=== PATIENT | female | born 1970 | race Caucasian/White ===

== ENCOUNTER 2020-05-20 21:27 | Inpatient (IN) | payer OTHER ==
[~2020-05-20] VITALS: Ht 170.2 cm; Wt 68.2 kg
[2020-05-20 21:27] VITALS: BP 119/85; BP 126/94
--- NOTE | 2020-05-20 22:00 | NUR ---
MEDICATION COUNT: LITHIUM 300MG 60 PILLS SEROQUEL 300MG 57 PILLS VALIUM 10MG 6 PILLS
[2020-05-20 22:15] LABS: APTT 26.3 SECONDS (22.8-39.4); INR 1.01 (0.85-1.17); PROTIME 13.2 SECONDS (11.6-15.0)
[2020-05-20 22:27] VITALS: BP 125/83
[2020-05-20 22:49] LABS: BILIRUBIN NEGATIVE (NEGATIVE); GLUCOSE NEGATIVE (NEGATIVE); KETONE NEGATIVE (NEGATIVE); NITRITE NEGATIVE (NEGATIVE); UROBILINOGEN NORMAL (NORMAL)
[2020-05-20 22:50] LABS: UDS - AMPHET NEGATIVE QUAL (NEGATIVE); UDS - BARB NEGATIVE QUAL (NEGATIVE); UDS - BENZO POSITIVE QUAL (NEGATIVE); UDS - COCAINE NEGATIVE QUAL (NEGATIVE); UDS - OPIATE NEGATIVE QUAL (NEGATIVE); UDS - PCP NEGATIVE QUAL (NEGATIVE); UDS - THC NEGATIVE QUAL (NEGATIVE)
[2020-05-20 22:58] LABS: BASOPHILS 0.4 % (0-2); EOSINOPHILS 0.6 % (0-7); HEMATOCRIT 39.7 % (36.0-48.0); HEMOGLOBIN 13.3 g/dL (12-16); IMMATURE GRANULOCYTES 0.8 % (0-5); LYMPHOCYTES 19.6 % (15-50); MCH 33.5 pg (26.0-34.0); MCHC 33.5 g/dL (31.0-37.0); MEAN PLATELET VOLUME 9.8 fL (7.4-10.4); MONOCYTES 9.7 % (2-11); NEUTROPHILS 68.9 % (40-80); PLATELET COUNT 167 10x3/uL (130-400); RBC 3.97 10x6/uL (4.00-5.40); RDW 14.1 % (11.5-14.5); WBC 10.6 10x3/uL (4.8-10.8)
[2020-05-20 23:00] LABS: CALC OSMOLALITY 286 mosm/kg (275-300); CALCIUM 9.1 mg/dL (8.5-10.1); CARBON DIOXIDE 18.5 mmol/L (21.0-32.0); CHLORIDE - SERUM 108 mmol/L (98-107); GLUCOSE 108 mg/dL (74-106); SODIUM 143 mmol/L (136-145); UREA NITROGEN 14 mg/dL (7-18); eGFR NON AFRICAN AMERICAN 62 mL/min (90-120)
[2020-05-20 23:15] LABS: CKMB 1.6 U/L (0.0-3.6); PROTEIN - SERUM 6.8 g/dL (6.4-8.2)
[2020-05-20 23:27] VITALS: BP 142/89
[2020-05-20 23:40] LABS: ALBUMIN 3.5 g/dL (3.4-5.0); ALKALINE PHOSPHATASE 102 U/L (30-120); ALT (SGPT) 39 U/L (10-68); CREATINE KINASE 399 UL (21-215); MAGNESIUM - SERUM 1.8 mg/dL (1.8-2.4); TROPONIN-I < 0.017 ng/mL (0.000-0.060)
[2020-05-21] VITALS (13 sets, daily range): BP systolic 95–135; BP diastolic 64–94; Ht 170.2 cm; Wt 68.2 kg
--- NOTE | 2020-05-21 04:40 | NUR ---
ATTEMPTED TO DO SUICIDE SCREENING. PATIENT UNABLE TO ANSWER QUESTIONS AT THIS TIME. SHE IS CONFUSED AND UNABLE TO COMPREHEND QUESTIONS AND COMMUNICATE THE ANSWER APPROPRIATELY. WILL REASSESS WHEN SHE IS ABLE TO COMMUNICATE.
--- NOTE | 2020-05-21 05:24 | NUR ---
patient attempting to get out of bed. disoriented. unable to answer questions clearly. garbled speech
--- NOTE | 2020-05-21 05:56 | NUR ---
PT ARRIVED FROM ER VIA STRETCHER AT 0430. PT IS CONFUSED WITH GARBLED / SLURRED SPEECH. UNABLE TO ANSWER MOST QUESTIONS INCLUDING BUT NOT LIMITED TO SUICIDE SCREENING, EMERGENCY CONTACTS, MEDICAL HX. IV IS IN LEFT WRIST (22 GUAGE) PROTECTED WITH KERLIX. VS 119/91, 95, 20, 100% TEMP 97.0
--- NOTE | 2020-05-21 07:00 | NUR ---
REPORT RECEIVED. ASSESSMENT COMPLETE PER FLOW SHEET. VSS. REFER FOR FINDINGS. PT RESTING COMFORTABLY IWLL CONTINUE TO MONITOR
[2020-05-21 07:41] LABS: ALBUMIN 3.2 g/dL (3.4-5.0); ALKALINE PHOSPHATASE 95 U/L (30-120); ALT (SGPT) 34 U/L (10-68); BILIRUBIN - TOTAL 0.92 mg/dL (0.2-1.3); CALC OSMOLALITY 283 mosm/kg (275-300); CALCIUM 8.6 mg/dL (8.5-10.1); CARBON DIOXIDE 25.2 mmol/L (21.0-32.0); CHLORIDE - SERUM 108 mmol/L (98-107); CKMB 1.9 U/L (0.0-3.6); CREATINE KINASE 516 UL (21-215); CREATININE - SERUM 0.9 mg/dL (0.6-1.3); GLUCOSE 107 mg/dL (74-106); MAGNESIUM - SERUM 1.7 mg/dL (1.8-2.4); PHOSPHOROUS 3.2 mg/dL (2.5-4.9); POTASSIUM - SERUM 3.1 mmol/L (3.5-5.1); PROTEIN - SERUM 6.8 g/dL (6.4-8.2); SODIUM 143 mmol/L (136-145); TROPONIN-I < 0.017 ng/mL (0.000-0.060); UREA NITROGEN 10 mg/dL (7-18); eGFR NON AFRICAN AMERICAN 70 mL/min (90-120)
[2020-05-21 07:50] LABS: BASOPHILS 0.3 % (0-2); EOSINOPHILS 1.2 % (0-7); HEMATOCRIT 38.4 % (36.0-48.0); HEMOGLOBIN 12.6 g/dL (12-16); IMMATURE GRANULOCYTES 0.1 % (0-5); LYMPHOCYTES 21.5 % (15-50); MCH 33.4 pg (26.0-34.0); MCHC 32.8 g/dL (31.0-37.0); MCV 101.9 fL (80.0-100.0); MONOCYTES 8.1 % (2-11); NEUTROPHILS 68.8 % (40-80); PLATELET COUNT 166 10x3/uL (130-400); RBC 3.77 10x6/uL (4.00-5.40); RDW 14.1 % (11.5-14.5); WBC 9.1 10x3/uL (4.8-10.8)
--- NOTE | 2020-05-21 09:15 | NUR ---
COMPLETE BB LINEN CHANGE ADM. ASSISTED TO BEDSIDE COMMODE. 300 CC FRANCIA URINE NOTED
--- NOTE | 2020-05-21 11:20 | NUR ---
REASSESSMENT COMPLETE PER FLOW SHEET. VSS. PT RESTING COMFORTABLY WILL CONTINUE TO MONITOR
--- NOTE | 2020-05-21 15:15 | NUR ---
REASSESSMENT COMPLETE PER FLOW SHEET.VSS. NO NEW HCANGES WILL CONTINUE TO MONITOR
--- NOTE | 2020-05-21 19:15 | NUR ---
PT ARRIVED TO FLOOR VIA WC. ASSISTED PT TO BED. PT UNSTEADY WHILE AMBULATING. SHE IS PLEASANT AND FOLLOWING COMMANDS. ORIENTED TO SELF ONLY. PROVIDED ICE WATER. DENIES OTHER NEEDS. SITTER PRESENT. BED ALARM ON. WILL CTM
--- NOTE | 2020-05-21 20:00 | NUR ---
PT HAS ATTEMPTED TO GET OUT OF BED MULTIPLE TIMES. ARGUING WITH SITTER. SHE IS RAMBLING AND HALLUCINATING. SHE BELIEVES HER DOGS ARE IN THE ROOM WITH HER. MULTIPLE ATTEMPTS TO REORIENT UNSUCCESSFUL. GAVE HS MEDS ORDERED. WILL CTM
--- NOTE | 2020-05-21 20:30 | NUR ---
TWO PERSON ASSIST TO BATHROOM. PT VERY UNSTEADY AND STUMBLING AND GRABBING AT THINGS WHILE WALKING. ASSISTED PT BACK TO BED AFTER VOIDING. WILL CTM
--- NOTE | 2020-05-21 21:15 | NUR ---
PT UPSET AND AGITATED. NOT FOLLOWING COMMANDS TO STAY IN THE BED. CRYING STATING HER DOGS WERE IN THE FLOOR. UNABLE TO REASON WITH PT. SHE DOES NOT KNOW WHERE SHE IS, THE TIME, OR SITUATION. GAVE ATIVAN. TRANSFER CENTER CALLED STATING ANAND NEED COVID SWAB DONE FOR PLACEMENT. COVID SWAB DONE AT THIS TIME. WILL CTM
--- NOTE | 2020-05-21 22:00 | NUR ---
CALLED, PASSWORD STATED AND UPDATE GIVEN. ASKED IF PSYCH DR WOULD GIVE HIM A CALL IN AM WHEN HE ROUNDS. WOULD LIKE TO KNOW WHAT THE NEXT STEP IS. HE BELIEVES SHE PURPOSELY ATTEMPTED OVERDOSE AND THAT IT WAS NOT ACCIDENTALLY. WILL PASS ALONG TO DAY SHIFT.
--- NOTE | 2020-05-21 23:00 | NUR ---
PT AGITATED, GETTING OUT OF BED EVERY FEW MINUTES, YELLING AT SITTER AT THE DOOR WAY, HALLUCINATING AND SEEING THINGS IN THE ROOM THAT ARE NOT THERE. HARD TO UNDERSTAND AND HAVE A CONVERSATION WITH PT. GAVE IM ATIVAN. CALLED ROLAND TO LET HIM KNOW SHE HAS HAD MAX AMOUNT OF GEODON IN A 24HR PERIOD AND CANNOT GIVE HER ANYMORE ATIVAN FOR 4 MORE HOURS AND NOTHING HAS STOPPED HER FROM TRYING TO CLIMB OUT OF BED AND BEING AGITATED. STATES DR CHIN IS HANDLING HER MEDS AND TO CALL HIM
--- NOTE | 2020-05-21 23:30 | NUR ---
[facility] CALLED AND STATED [facility] HAS ACCEPTED PT FOR INPATIENT PSYCH AND WILL HAVE BED AVAILABLE AT 7AM.
[2020-05-22] VITALS: BP 135/86
--- NOTE | 2020-05-22 02:00 | NUR ---
[facility] CALLED ASKING IF PT HAS ANY DIFFICULTY EATING OR AMBULATING. EXPLAINED PT DIFFICULTY AMBULATING. [facility] STATES THEY WILL CALL BACK FOR UPDATE IN AM BUT IF SHE IS STILL HAVING TROUBLE WALKING THEN SHE WOULD BE BETTER SUITED FOR THEIR [facility] PSYCH SIDE AND NOT THE ADULT PSYCH SIDE BECAUSE THEY ARE NOT CAPABLE OF TAKING A PT WHO NEEDS WALKING ASSIST. IF THAT IS THE CASE, SHE WILL HAVE TO WAIT TIL IN THE AM TO SEE IF THE [facility] PSYCH S[facility] HAS A BED AVAILABLE.
--- NOTE | 2020-05-22 02:30 | NUR ---
ATIVAN GIVENF FOR AGITATION, NOT FOLLOWING COMMANDS, YELLING AT SITTER AND TRYING TO GET OUT OF BED SEVERAL TIMES AND ALMOST FALLING
--- NOTE | 2020-05-22 03:00 | NUR ---
PT CONTINUES TO BE AGITATED AND ARGUMENTATIVE WITH STAFF. RAMBLING AND HALLUCINATING. TRYING TO CLIMB OUT OF BED. ATIVAN GIVEN. WILL CTM
[2020-05-22 04:00] VITALS: BP 114/87
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
[2020-05-22 07:11] LABS: CALC OSMOLALITY 277 mosm/kg (275-300); CALCIUM 9.1 mg/dL (8.5-10.1); CHLORIDE - SERUM 107 mmol/L (98-107); CREATININE - SERUM 0.8 mg/dL (0.6-1.3); GLUCOSE 109 mg/dL (74-106); MAGNESIUM - SERUM 1.9 mg/dL (1.8-2.4); PHOSPHOROUS 3.5 mg/dL (2.5-4.9); POTASSIUM - SERUM 3.6 mmol/L (3.5-5.1); SODIUM 139 mmol/L (136-145); UREA NITROGEN 10 mg/dL (7-18); eGFR NON AFRICAN AMERICAN 80 mL/min (90-120)
[2020-05-22 07:12] LABS: BASOPHILS 0.2 % (0-2); EOSINOPHILS 2.4 % (0-7); HEMATOCRIT 39.1 % (36.0-48.0); IMMATURE GRANULOCYTES 0.4 % (0-5); LYMPHOCYTES 18.1 % (15-50); MCH 33.2 pg (26.0-34.0); MCHC 33.2 g/dL (31.0-37.0); NEUTROPHILS 70.9 % (40-80); PLATELET COUNT 165 10x3/uL (130-400); RBC 3.91 10x6/uL (4.00-5.40); RDW 13.6 % (11.5-14.5); WBC 10.3 10x3/uL (4.8-10.8)
[2020-05-22 09:03] VITALS: BP 121/82
[2020-05-22 10:13] LABS: CKMB 2.5 U/L (0.0-3.6)
[2020-05-22 10:14] LABS: CREATINE KINASE 792 UL (21-215)
[2020-05-22] MEDS ORDERED: NICODERM CQ1 EAC3 TOPICAL (11:28)
--- NOTE | 2020-05-22 14:39 | CN ---
PATIENT NAME:KELIN PEREZ MEDICAL RECORD: [id number] : 68 LOCATION:D.MS Rey2229 ADMIT DATE: 05/21/20 ACCOUNT: [id number] CONSULTING PHYSICIAN: WILL CHIN MD REFERRING PHYSICIAN: CHELSEY LEDBETTER MD DATE OF CONSULTATION: 05/21/2020 IDENTIFYING DATA: The patient is 49 years old and she is admitted to the hospital on a voluntary basis. CHIEF COMPLAINT: Overdose. HISTORY OF PRESENT ILLNESS: The patient was found by her unresponsive and brought to the Emergency Room. She has a known history of mental illness and there were concerns that she had taken her medications perhaps deliberately to try to hurt herself. The urine drug screen was only positive for a benzodiazepine and Valium is one of her home medications. On interview, she denies that she wants to hurt herself, but is not really able to give me much in the way of useful information. Her thought processes are grossly disorganized with rambling incoherent almost word salad presentation. There is nothing that would explain this medically or neurologically and the symptoms appeared to be entirely consistent with an absence of contact with reality and probably a manic state. She is grossly disorganized, not oriented and unable to follow very simple instructions. She is displaying a high degree of distress with a low degree of specificity and I observe her to attend to stimuli that are not present. Her admission lab also showed a subtherapeutic lithium level of 0.36. ASSESSMENT: 1. Bipolar disorder, manic. 2. Status post accidental overdose. PLAN: I do not believe the patient intentionally tried to kill herself based on the information I have at this point. I do, however, believe that she is grossly disorganized as described above and in need of inpatient confinement for medical stabilization. I will restart her lithium and order both scheduled and p.r.n. medications to address her disruptive behavior. She appears to be medically stable and it would be my recommendation that she be transferred to acute inpatient psychiatric care as soon as it is reasonably convenient to do so. She is willing to go to inpatient treatment at this point. TRANSINT:[id number] Voice Confirmation ID: [id number] DOCUMENT ID: [id number] WILL CHIN MD at 1432 CC: [id number] DICTATION DATE: 05/21/20 1558 STORE KEEPER: 05/21/20 1640 ADM IN [facility] [address] [facility]
[2020-05-22 17:36] VITALS: BP 126/84
--- NOTE | 2020-05-22 18:25 | NUR ---
PATIENT PACING ROOM TRYING TO LEAVE. GAVE LYUDMILA RAMIREZ, HAS HAD NO EFFECT ON PATIENT. PATIENT STILL AGITATED AND WANTS TO LEAVE. HAVE GIVEN EVERYTHING AVAILABLE TO PATIENT, NO MEDS HAVE BEEN EFFECTIVE.
[2020-05-22 20:00] VITALS: BP 124/79
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
--- NOTE | 2020-05-22 23:00 | NUR ---
PT HAS BEEN TRYING TO GET OUT OF ROOM SINCE 1900, ARGUING WITH STAFF. YELLING OUT INTO HALLWAY AND HALLUCINATING. THINKS HER DOGS AND GRANDKIDS ARE IN HER ROOM. OFF AND ON CRYING/LAUGHING. TALKING TO SELF. SPOKE WITH OVER PHONE, UPDATE GIVEN.
--- NOTE | 2020-05-23 00:30 | NUR ---
PT LYING IN BED RESTING WITH EYES CLOSED. WILL CTM
[2020-05-23 04:00] VITALS: BP 111/46
--- NOTE | 2020-05-23 05:00 | NUR ---
PT LYING IN BED SLEEPING WITHOUT DISTRESS
--- NOTE | 2020-05-23 05:50 | NUR ---
PT AWAKE AND YELLING INTO HALLWAY. STATING TO BRING HER A SMOKE AND REDBULL. TOLD PT SHE COULD NOT SMOKE IN HERE AND WE DID NOT HAVE REDBULL. PT BECAME AGITATED AND CAME OUT INTO HALLWAY TRYING TO GET PAST SITTER SAYING SHE WAS LEAVING TO GO SMOKE. THIS NURSE, NURSES AID AND SITTER STOPPED PT AND TOLD HER TO GO BACK TO ROOM. PT PACING IN AND OUT OF DOORWAY AND TRYING TO SHUT THE DOOR. PT TOLD SEVERAL TIMES TO NOT SHUT THE DOOR. AFTER THIS NURSE TOLD PT NOT TO SHUT THE DOOR, SHE STORMED OUT INTO HALLWAY AND GOT INTO THIS NURSES GAVE SAYING "LISTEN HERE LITTLE GIRL", AT THAT TIME THE DRY CHAIN PULLER WAS WALKING BY AND STEPPED BETWEEN PT AND THIS NURSE AND NURSES AID CAME TO ASSIST. PT WAS TOLD TO GO BACK TO HER ROOM. PT WENT BACK TO ROOM YELLING ABOUT NOT BEING ABLE TO FIND HER DOGS AND RAMBLING ABOUT THINGS THAT DID NOT MAKE SENSE. PT TOLD MULTIPLE TIMES HER DOGS WERE AT HOME. PT UPSET THAT LAB KARI HER BLOOD STATING "I KNOW THEY DID NOT JUST GET BLOOD, THEY DID SOMETHING TO ME" "YOU ALL ARE UP TO SOMETHING" "YOU ARE HIDING SOMETHING FROM ME"
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
[2020-05-23 06:53] LABS: BASOPHILS 0.2 % (0-2); EOSINOPHILS 4.5 % (0-7); HEMATOCRIT 41.1 % (36.0-48.0); HEMOGLOBIN 13.5 g/dL (12-16); IMMATURE GRANULOCYTES 0.4 % (0-5); LYMPHOCYTES 19.4 % (15-50); MCH 32.9 pg (26.0-34.0); MCHC 32.8 g/dL (31.0-37.0); MCV 100.2 fL (80.0-100.0); MEAN PLATELET VOLUME 10.6 fL (7.4-10.4); NEUTROPHILS 66.5 % (40-80); PLATELET COUNT 185 10x3/uL (130-400); RDW 13.3 % (11.5-14.5); WBC 8.5 10x3/uL (4.8-10.8)
[2020-05-23 07:33] LABS: CALC OSMOLALITY 275 mosm/kg (275-300); CALCIUM 8.7 mg/dL (8.5-10.1); CARBON DIOXIDE 20.5 mmol/L (21.0-32.0); CHLORIDE - SERUM 104 mmol/L (98-107); CREATINE KINASE 635 UL (21-215); CREATININE - SERUM 0.8 mg/dL (0.6-1.3); GLUCOSE 122 mg/dL (74-106); MAGNESIUM - SERUM 1.9 mg/dL (1.8-2.4); PHOSPHOROUS 3.2 mg/dL (2.5-4.9); POTASSIUM - SERUM 3.3 mmol/L (3.5-5.1); SODIUM 138 mmol/L (136-145); UREA NITROGEN 10 mg/dL (7-18); eGFR NON AFRICAN AMERICAN 80 mL/min (90-120)
[2020-05-23 07:36] LABS: CKMB 2.9 U/L (0.0-3.6)
--- NOTE | 2020-05-23 10:33 | NUR ---
I have reviewed this patient and I concur with the Shift Assessment completed by the Licensed Practical Nurse today this shift.
--- NOTE | 2020-05-23 10:38 | MORECARE ---
CASE MANAGEMENT DISCHARGE SUMMARY PATIENT: KELIN PEREZ UNIT: [id number] ADM DATE: 05/21/20 AGE: 49 : [birth year] SEX: F ROOM/BED: D.2229 AUTHOR: ASHLEY JIN PHYSICIAN: REFERRING PHYSICIAN: CHELSEY LEDBETTER MD DATE OF SERVICE: 05/23/20 Discharge Plan Patient Name: KELIN PEREZ Facility: [facility]:[place] : 1970 Planned Disposition: Anticipated Discharge Date: Discharge Date: Expected LOS: Initial Reviewer: [email or web address] Initial Review Date: 05/22/2020 Generated: 05/23/20 11:37 am Comments DCP- Discharge Planning Updated by [email or web address]: Luz Maria Zamora on 05/23/20 9:[address] Patient Name: KELIN PEREZ Admission Status: ER Accout number: [id number] Admission Date: 05-21-2020 : 1970 Admission Diagnosis:TOXIC EFFECT OF UNSP SUBSTANCE, ACCIDENTAL, INIT Attending: CHELSEY LEDBETTER Current LOS: 2 Anticipated DC Date: Planned Disposition: Primary Insurance: [facility] Discharge Planning Comments: FAXED UPDATE TO TRANSFER CENTER. [facility] [place] MAY BE A POSSIBILITY. CM TO FOLLOW AND ASSIST. Travel Attendants: Luz Maria Zamora External Providers External Provider: OTHER-OTHER Next Contact Date: Service Request Date: Service Type: Resolution: Reviewer: Comments: Patient Name: KELIN PEREZ Page [phone] at 1038 All edits/amendments must be made on the electronic document DICTATION DATE: 05/23/20 1037 COMMERCIAL GREEN RETROFIT ARCHITECT: DM 05/23/20 1037 RPT#: [id number] DC DATE: STATUS: ADM IN [facility] [address] [place] [address] END OF REPORT
[2020-05-23 11:05] VITALS: BP 108/71
[2020-05-23 13:31] VITALS: BP 119/68
--- NOTE | 2020-05-23 17:24 | MORECARE ---
CASE MANAGEMENT DISCHARGE SUMMARY PATIENT: KELIN PEREZ UNIT: [id number] ADM DATE: 05/21/20 AGE: 49 : [birth year] SEX: F ROOM/BED: D.2229 AUTHOR: ASHLEY JIN PHYSICIAN: REFERRING PHYSICIAN: CHELSEY LEDBETTER MD DATE OF SERVICE: 05/23/20 Discharge Plan Patient Name: KELIN PEREZ Facility: [facility]:[place] : 1970 Planned Disposition: Anticipated Discharge Date: Discharge Date: Expected LOS: Initial Reviewer: [email or web address] Initial Review Date: 05/22/2020 Generated: 05/23/20 6:23 pm Comments DCP- Discharge Planning Updated by [email or web address]: Luz Maria Zamora on 05/23/20 4:[address] Patient Name: KELIN PEREZ Admission Status: ER Accout number: [id number] Admission Date: 05-21-2020 : 1970 Admission Diagnosis:TOXIC EFFECT OF UNSP SUBSTANCE, ACCIDENTAL, INIT Attending: CHELSEY LEDBETTER Current LOS: 2 Anticipated DC Date: Planned Disposition: Primary Insurance: [facility] [employer] Discharge Planning Comments: I SPOKE WITH THE TRANSFER CENTER FOR AN UPDATE. SO FAR EVERY PLACE THEY HAVE TRIED HAS DENIED. THEY WILL FOLLOW UP WITH THE NURSE TOMORROW. WHEN PATIENT IS MORE CONTROLLED IT WILL BE EASIER TO PLACE. TRANSFER CENTER PHONE NUMBER IS [phone]. CM TO FOLLOW AND ASSIST NEEDED. Retort Pre Cooker: Luz Maria Zamora DCP- Discharge Planning Updated by [email or web address]: Luz Maria Zamora on 05/23/20 9:[address] Patient Name: KELIN PEREZ Admission Status: ER Accout number: [id number] Admission Date: 05-21-2020 : 1970 Admission Diagnosis:TOXIC EFFECT OF UNSP SUBSTANCE, ACCIDENTAL, INIT Attending: CHELSEY LEDBETTER Current LOS: 2 Anticipated DC Date: Planned Disposition: Primary Insurance: [facility] Discharge Planning Comments: FAXED UPDATE TO TRANSFER CENTER. [facility] MAY BE A POSSIBILITY. CM TO FOLLOW AND ASSIST. Retort Pre Cooker: Luz Maria Rowland DP export: 05/23/20 9:38 a Patient Name: KELIN PEREZ Page [phone] at 1724 All edits/amendments must be made on the electronic document DICTATION DATE: 05/23/201722 MILK HOUSE WORKER: JAJA 05/23/201722 RPT#: [id number] DC DATE: STATUS: ADM IN [facility] [address] [place] [address] END OF REPORT
[2020-05-23 17:31] VITALS: BP 102/67
[2020-05-23 20:00] VITALS: BP 128/77
--- NOTE | 2020-05-23 23:00 | NUR ---
PT RESTLESS/AGITATED. GAVE ATIVAN 2M IM TO RIGHT VENTROGLUTEAL. NO OTHER NEEDS. WILL REASSESS AND CONTINUE TO MONITOR.
[2020-05-24 04:00] VITALS: BP 120/75
[2020-05-24 06:39] LABS: BASOPHILS 0.4 % (0-2); EOSINOPHILS 4.3 % (0-7); HEMATOCRIT 41.1 % (36.0-48.0); HEMOGLOBIN 13.4 g/dL (12-16); IMMATURE GRANULOCYTES 0.3 % (0-5); LYMPHOCYTES 30.8 % (15-50); MCH 33.1 pg (26.0-34.0); MCHC 32.6 g/dL (31.0-37.0); MCV 101.5 fL (80.0-100.0); MEAN PLATELET VOLUME 10.5 fL (7.4-10.4); MONOCYTES 8.5 % (2-11); NEUTROPHILS 55.7 % (40-80); PLATELET COUNT 215 10x3/uL (130-400); RBC 4.05 10x6/uL (4.00-5.40); RDW 13.1 % (11.5-14.5)
--- NOTE | 2020-05-24 07:15 | NUR ---
REC'D IN BED AWAKE AND ALERT. RESP EVEN AND UNLABORED WITH NO DISTRESS NOTED. CAN EXPRESS NEEDS AND WANTS. NO C/O VOICED. ASSESSMENT COMPELETED. C/L IN REACH AT BEDSIDE.
[2020-05-24 07:37] LABS: CALC OSMOLALITY 274 mosm/kg (275-300); CALCIUM 8.3 mg/dL (8.5-10.1); CARBON DIOXIDE 22.8 mmol/L (21.0-32.0); CHLORIDE - SERUM 107 mmol/L (98-107); CREATININE - SERUM 0.7 mg/dL (0.6-1.3); GLUCOSE 106 mg/dL (74-106); PHOSPHOROUS 3.3 mg/dL (2.5-4.9); POTASSIUM - SERUM 3.7 mmol/L (3.5-5.1); SODIUM 138 mmol/L (136-145); UREA NITROGEN 10 mg/dL (7-18); eGFR NON AFRICAN AMERICAN > 90 mL/min (90-120)
--- NOTE | 2020-05-24 08:10 | NUR ---
WAS MEDICATED WITH ATIVAN IM PER ORDERS FOR C/O ANXIETY. C/L IN REACH AT BEDSIDE.
--- NOTE | 2020-05-24 11:28 | PN ---
PATIENT:KELIN PEREZ MEDICAL RECORD: [id number] LOCATION:D.MS Rey222 ADMISSION DATE: 05/21/20 PROGRESS NOTE DATE OF SERVICE: 05/23/2020 SUBJECTIVE: The patient's case was discussed with staff and her record was reviewed. OBJECTIVE: The patient is not fully intact with reality. She has a mood that is labile and thought content that is delusional. ASSESSMENT: Bipolar disorder, manic. PLAN: The patient has been taking lithium, I am going to order a lithium level. She has been disruptive, agitated, and threatening through the night and case finisher and required multiple p.r.n. doses of medication. She is dangerous and she is inappropriate to be managed in this setting. She needs to be transferred to acute inpatient psychiatric care as soon as possible. I am going to keep her on the Geodon on a scheduled basis with the lithium. I am also going to start her on a scheduled dose of Klonopin at a dose of 2 mg 3 times daily for the purposes of managing her behavior. Again, she does not belong on a medical floor. It is an entirely inappropriate setting for to try to manage a psychotic, manic individual and the sooner she can be discharged to a psychiatric unit be better. If the amount of Klonopin being given is excessive, of course, I will monitor it and/or it should be reduced. It is purely being given to try to control a out of control person in an environment in which she does not belong. TRANSINT:[id number] Voice Confirmation ID: [id number] DOCUMENT ID: [id number] WILL CHIN MD at 1128 CC: [id number] DICTATION DATE: 05/23/20 1531 COMMODITIES REQUIREMENTS ANALYST: 05/24/20 0053 ADM IN [facility] [address] [place] [address]
--- NOTE | 2020-05-24 13:11 | NUR ---
I have reviewed this patient and I concur with the Shift Assessment completed by the Licensed Practical Nurse today this shift.
--- NOTE | 2020-05-24 14:49 | MORECARE ---
CASE MANAGEMENT DISCHARGE SUMMARY PATIENT: KELIN PEREZ UNIT: [id number] ADM DATE: 05/21/20 AGE: 49 : [birth year] SEX: F ROOM/BED: D.2229 AUTHOR: ASHLEY JIN PHYSICIAN: REFERRING PHYSICIAN: CHELSEY LEDBETTER MD DATE OF SERVICE: 05/24/20 Discharge Plan Patient Name: KELIN PEREZ Facility: [facility]:[place] : 1970 Planned Disposition: Anticipated Discharge Date: Discharge Date: Expected LOS: Initial Reviewer: [email or web address] Initial Review Date: 05/22/2020 Generated: 05/24/20 3:48 pm Comments DCP- Discharge Planning Updated by [id number]: Luz Maria Zamora on 05/23/20 4:[address] Patient Name: KELIN PEREZ Admission Status: ER Accout number: [id number] Admission Date: 05-21-2020 : 1970 Admission Diagnosis:TOXIC EFFECT OF UNSP SUBSTANCE, ACCIDENTAL, INIT Attending: CHELSEY LEDBETTER Current LOS: 2 Anticipated DC Date: Planned Disposition: Primary Insurance: [facility] [employer] Discharge Planning Comments: I SPOKE WITH THE TRANSFER CENTER FOR AN UPDATE. SO FAR EVERY PLACE THEY HAVE TRIED HAS DENIED. THEY WILL FOLLOW UP WITH THE NURSE TOMORROW. WHEN PATIENT IS MORE CONTROLLED IT WILL BE EASIER TO PLACE. TRANSFER CENTER PHONE NUMBER IS [phone]. CM TO FOLLOW AND ASSIST NEEDED. Breakdown Worker: Luz Maria Zamora DCP- Discharge Planning Updated by [email or web address]: Luz Maria Zamora on 05/23/20 9:[address] Patient Name: KELIN PEREZ Admission Status: ER Accout number: [id number] Admission Date: 05-21-2020 : 1970 Admission Diagnosis:TOXIC EFFECT OF UNSP SUBSTANCE, ACCIDENTAL, INIT Attending: CHELSEY LEDBETTER Current LOS: 2 Anticipated DC Date: Planned Disposition: Primary Insurance: [facility] Discharge Planning Comments: FAXED UPDATE TO TRANSFER CENTER. [facility] MAY BE A POSSIBILITY. CM TO FOLLOW AND ASSIST. Breakdown Worker: Luz Maria Zamora External Providers External Provider: [facility] Next Contact Date: Service Request Date: Service Type: Resolution: Reviewer: Comments: Last DP export: 05/23/20 4:24 p Patient Name: KELIN PEREZ Page [phone] at 1449 All edits/amendments must be made on the electronic document DICTATION DATE: 05/24/201447 TUMBLING AND ROLLING SUPERVISOR: JAJA 05/24/201447 RPT#: [id number] DC DATE: STATUS: ADM IN [facility] [address] [place] [address] END OF REPORT
[2020-05-24 17:15] VITALS: BP 128/75
--- NOTE | 2020-05-24 18:28 | MORECARE ---
CASE MANAGEMENT DISCHARGE SUMMARY PATIENT: KELIN PEREZ UNIT: [id number] ADM DATE: 05/21/20 AGE: 49 : [birth year] SEX: F ROOM/BED: D.2229 AUTHOR: ANNABEL,DOC PHYSICIAN: REFERRING PHYSICIAN: CHELSEY LEDBETTER MD DATE OF SERVICE: 05/24/20 Discharge Plan Patient Name: KELIN PEREZ Facility: [facility]:[place] : 1970 Planned Disposition: Anticipated Discharge Date: Discharge Date: Expected LOS: Initial Reviewer: [email or web address] Initial Review Date: 05/22/2020 Generated: 05/24/20 7:27 pm Comments DCP- Discharge Planning Updated by [id number]: Leila King on 05/24/20 5:[address] CM received a call from transfer center requesting updates. Transfer Center stated they was going to reach out to facilities that had declined patient earlier to see if with updated records they would reconsider. CM faxed updates. CM will continue to follow and assist as needed with discharge planning / needs. DCP- Discharge Planning Updated by [email or web address]: Luz Maria Zamora on 05/23/20 4:[address] Patient Name: KELIN PEREZ Admission Status: ER Accout number: [id number] Admission Date: 05-21-2020 : 1970 Admission Diagnosis:TOXIC EFFECT OF UNSP SUBSTANCE, ACCIDENTAL, INIT Attending: CHELSEY LEDBETTER Current LOS: 2 Anticipated DC Date: Planned Disposition: Primary Insurance: [facility] Discharge Planning Comments: I SPOKE WITH THE TRANSFER CENTER FOR AN UPDATE. SO FAR EVERY PLACE THEY HAVE TRIED HAS DENIED. THEY WILL FOLLOW UP WITH THE NURSE TOMORROW. WHEN PATIENT IS MORE CONTROLLED IT WILL BE EASIER TO PLACE. TRANSFER CENTER PHONE NUMBER IS [phone]. CM TO FOLLOW AND ASSIST NEEDED. Business Administration Program Chair: Luz Maria Zamora DCP- Discharge Planning Updated by [email or web address]: Luz Maria Zamora on 05/23/20 9:[address] Patient Name: KELIN PEREZ Admission Status: ER Accout number: [id number] Admission Date: 05-21-2020 : 1970 Admission Diagnosis:TOXIC EFFECT OF UNSP SUBSTANCE, ACCIDENTAL, INIT Attending: CHELSEY LEDBETTER Current LOS: 2 Anticipated DC Date: Planned Disposition: Primary Insurance: [facility] Discharge Planning Comments: FAXED UPDATE TO TRANSFER CENTER. [facility] [place] MAY BE A POSSIBILITY. CM TO FOLLOW AND ASSIST. Business Administration Program Chair: Luz Maria TAMEZ export: 05/24/20 1:49 pm Patient Name: KELIN PEREZ Page [phone] at 1828 All edits/amendments must be made on the electronic document DICTATION DATE: 05/24/201826 KITCHEN CLEANER: JAJA 05/24/201826 RPT#: [id number] DC DATE: STATUS: ADM IN [facility] [address] [place] [address] END OF REPORT
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
--- NOTE | 2020-05-24 19:28 | NUR ---
PATIENT RESTING IN BED WITH NO S/S OF DISTRESS. PATIENT DENIES NEEDS AT THIS TIME. BED IN LOWEST POSITION AND CALL LIGHT WITHIN REACH. ENCOURAGED THE PATIENT TO CALL IF SHE HAS NEEDS. WILL CONTINUE TO MONITOR.
[2020-05-24 20:00] VITALS: BP 108/80
--- NOTE | 2020-05-24 21:13 | NUR ---
ADMINISTERED MEDS PER ORDERS. PATIENT DENIES OTHER NEEDS. WILL CONTINUE TO MONITOR.
[2020-05-25] VITALS: BP 111/85
[2020-05-25 04:00] VITALS: BP 116/84
[2020-05-25 07:14] LABS: BASOPHILS 0.4 % (0-2); EOSINOPHILS 5.1 % (0-7); HEMATOCRIT 37.6 % (36.0-48.0); HEMOGLOBIN 12.2 g/dL (12-16); IMMATURE GRANULOCYTES 0.3 % (0-5); LYMPHOCYTES 23.2 % (15-50); MCHC 32.4 g/dL (31.0-37.0); MCV 101.6 fL (80.0-100.0); MEAN PLATELET VOLUME 10.2 fL (7.4-10.4); MONOCYTES 8.4 % (2-11); NEUTROPHILS 62.6 % (40-80); PLATELET COUNT 215 10x3/uL (130-400); RDW 12.7 % (11.5-14.5); WBC 7.6 10x3/uL (4.8-10.8)
[2020-05-25 07:30] LABS: CALC OSMOLALITY 276 mosm/kg (275-300); CALCIUM 8.7 mg/dL (8.5-10.1); CARBON DIOXIDE 21.3 mmol/L (21.0-32.0); CHLORIDE - SERUM 108 mmol/L (98-107); CREATININE - SERUM 0.8 mg/dL (0.6-1.3); GLUCOSE 98 mg/dL (74-106); MAGNESIUM - SERUM 2.1 mg/dL (1.8-2.4); PHOSPHOROUS 3.1 mg/dL (2.5-4.9); SODIUM 139 mmol/L (136-145); UREA NITROGEN 10 mg/dL (7-18); eGFR NON AFRICAN AMERICAN 80 mL/min (90-120)
--- NOTE | 2020-05-25 08:07 | NUR ---
UP WALKING IN HALLS THIS AM, NO DISTRESS NOTED, TRYING TO RECALL THE EVENTS OF THE LAST WEEK, DENIES SI, WILL CALL THIS AM FOR MED LIST
[2020-05-25 09:13] VITALS: BP 107/64
[2020-05-25 12:04] LABS: CKMB 1.2 U/L (0.0-3.6); CREATINE KINASE 354 UL (21-215)
[2020-05-25] MEDS ORDERED: ATIVAN1 MG PO (13:16)
[2020-05-25] MEDS ORDERED: ATIVAN IM (13:16)
[2020-05-25] MEDS ORDERED: GEODON20 M1 IM (13:16)
[2020-05-25] MEDS ORDERED: LITHIUM CARBON300 MG PO (13:16)
[2020-05-25] MEDS ORDERED: KLONOPIN1 MG PO (13:16)
[2020-05-25] MEDS ORDERED: ALBUTEROL2.5 MG/3 M UPD (13:16)
[2020-05-25] MEDS ORDERED: SEROQUEL25 MG PO (13:16)
[2020-05-25] MEDS ORDERED: NICODERM CQ1 EAC2 TRANSDERM (13:16)
--- NOTE | 2020-05-25 13:18 | NUR ---
REC CALL FROM DR CHIN THAT [facility] HAD ACCEPTED THIS PT, CHART COPIED AND FAXED TO [facility] AT [facility]
--- NOTE | 2020-05-25 13:58 | NUR ---
REPORT CALLED TO [facility], AMB[facility] AWARE OF NEED FOR TRANSFER
--- NOTE | 2020-05-25 15:25 | NUR ---
AMBULANCE HERE TO TAKE PT TO [facility], PACKET SENT ALONG
--- NOTE | 2020-05-25 17:17 | MORECARE ---
CASE MANAGEMENT DISCHARGE SUMMARY PATIENT: KELIN PEREZ UNIT: [id number] ADM DATE: 05/21/20 AGE: 49 : 68 SEX: F ROOM/BED: D.2229 AUTHOR: ANNABEL,DOC PHYSICIAN: REFERRING PHYSICIAN: CHELSEY LEDBETTER MD DATE OF SERVICE: 05/25/20 Discharge Plan Patient Name: KELIN PEREZ Facility: [facility]:[place] : 1970 Planned Disposition: Anticipated Discharge Date: Discharge Date: 05/25/2020 Expected LOS: Initial Reviewer: [email or web address] Initial Review Date: 05/22/2020 Generated: 05/25/20 6:17 pm Comments DCP- Discharge Planning Updated by [email or web address]: Leila King on 05/24/20 5:[address] CM received a call from [facility] requesting updates. Transfer Center stated they was going to reach out to facilities that had declined patient earlier to see if with updated records they would reconsider. CM faxed updates. CM will continue to follow and assist as needed with discharge planning / needs. DCP- Discharge Planning Updated by [email or web address]: Luz Maria Zamora on 05/23/20 4:[address] Patient Name: KELIN PEREZ Admission Status: ER Accout number: [id number] Admission Date: 05-21-2020 : 1970 Admission Diagnosis:TOXIC EFFECT OF UNSP SUBSTANCE, ACCIDENTAL, INIT Attending: CHELSEY LEDBETTER Current LOS: 2 Anticipated DC Date: Planned Disposition: Primary Insurance: [facility] Discharge Planning Comments: I SPOKE WITH THE TRANSFER CENTER FOR AN UPDATE. SO FAR EVERY PLACE THEY HAVE TRIED HAS DENIED. THEY WILL FOLLOW UP WITH THE NURSE TOMORROW. WHEN PATIENT IS MORE CONTROLLED IT WILL BE EASIER TO PLACE. TRANSFER CENTER PHONE NUMBER IS [phone]. CM TO FOLLOW AND ASSIST NEEDED. Mobile Manager: Luz Maria Zamora DCP- Discharge Planning Updated by [email or web address]: Luz Maria Zamora on 05/23/20 9:[address] Patient Name: KELIN PEREZ Admission Status: ER Accout number: [id number] Admission Date: 05-21-2020 : 1970 Admission Diagnosis:TOXIC EFFECT OF UNSP SUBSTANCE, ACCIDENTAL, INIT Attending: CHELSEY LEDBETTER Current LOS: 2 Anticipated DC Date: Planned Disposition: Primary Insurance: [facility] Discharge Planning Comments: FAXED UPDATE TO TRANSFER CENTER. [facility] MAY BE A POSSIBILITY. CM TO FOLLOW AND ASSIST. Mobile Manager: Luz Maria Rowland DP export: 05/24/20 5:28 pm Patient Name: KELIN PEREZ Page [id number] at 1717 All edits/amendments must be made on the electronic document DICTATION DATE: 05/25/201716 HOTEL HOUSEKEEPER: JAJA 05/25/207 RPT#: [id number] DC DATE:05/25/20 STATUS: DIS IN [facility] [address] [place] [address] END OF REPORT
--- NOTE | 2020-05-26 12:27 | PN ---
PATIENT:KELIN PEREZ MEDICAL RECORD: [id number] LOCATION:D.MS [id number] ADMISSION DATE: 05/21/20 PROGRESS NOTE DATE OF SERVICE: 05/25/2020 SUBJECTIVE: The patient's case was discussed with staff. She has no new complaint. OBJECTIVE: The patient is not sedated despite the fact that she is receiving 2 mg of Klonopin 4 times daily along with 50 mg of Seroquel 4 times daily. I have restarted her lithium, but I have not checked the lithium level, it is probably time to do that. She is denying that she would hurt herself, but once again she is not doing so on a very convincing manner. She is displaying a high degree of distress, reporting that she feels like she is coming to pieces and she has psychomotor agitation that significant given what she is receiving and I am sure would be a repeat of what happened 2 nights ago when she was tearing things off the wall and screaming in the hallways. It is my opinion that she has bipolar disorder and that she is manic and that she needs inpatient stabilization. I have advised her and her of this, they are both in agreement. ASSESSMENT: Bipolar disorder. PLAN: I have spoken with Alcira at [facility] and I have faxed her portions of the patient's record. She has presented to her on-call physician and called me back and informed me that they will accept the patient. She also indicates that they have not heard of this patient before or had a referral on her. I have made the appropriate contacts with the nurse's station and warehouse logistics coordinator to affect the transfer today. The warehouse logistics coordinator was contacted through [facility]. The patient is willing to go on a voluntary basis. Hopefully, she can be transferred out of the hospital today. TRANSINT:[id number] Voice Confirmation ID: [id number] DOCUMENT ID: [id number] WILL CHIN MD at 1227 CC: [id number] DICTATION DATE: 05/25/20 1346 HOSPITALITY INTERNSHIP: 05/26/20 0142 DIS IN 05/25/20 [facility] [address] [place] [address]
== END 2020-05-25 15:25 | disposition short-term general hospital (02) | DRG 917 ==
LOC: D.ER 21:27 → D.MS 05-21 00:36 → D.ICU 05-21 00:36 → D.MS 05-21 19:02
PROVIDERS: Family Medicine; ADMIT Emergency Medicine; ATTEND Emergency Medicine
DX: T43.591A Poisoning by other antipsychotics and neuroleptics, accidental (unintentional), initial encounter (principal); G92 Toxic encephalopathy; F31.10 Bipolar disorder, current episode manic without psychotic features, unspecified; T65.91XA Toxic effect of unspecified substance, accidental (unintentional), initial encounter; F41.8 Other specified anxiety disorders; F20.9 Schizophrenia, unspecified; F10.20 Alcohol dependence, uncomplicated